=== PATIENT | female | born 1975 | race Caucasian/White ===

== ENCOUNTER 2021-07-09 20:19 | Emergency (ER) | payer OTHER ==
[~2021-07-09] VITALS: Ht 167.6 cm; Wt 136.1 kg
[2021-07-10] MEDS ORDERED: PROVENTIL HFA6.7 GM INH (03:14)
== END 2021-07-10 06:33 | disposition home or self-care (01) ==
LOC: ER1 20:19
DX: U07.1 COVID-19 (principal); Z23 Encounter for immunization; I10 Essential (primary) hypertension
CPT/HCPCS: 99283; M0243; U0002